=== PATIENT | male | born 1965 | race Caucasian/White ===

== ENCOUNTER 2017-04-04 06:11 | Day surgery (SDC) | payer OTHER ==
[2017-04-03 14:06] VITALS: BMI 23.0
--- NOTE | 2017-04-03 21:02 | HP ---
DATE OF ADMISSION: 04/04/2017 ADMISSION DIAGNOSIS: Left preauricular cyst and sinus tract. HISTORY OF PRESENT ILLNESS: This 51-year-old male has had longstanding sinus tract in the left preauricular area. He is usually able to express fluid out of the cyst through the sinus tract. More recently, he has had obstruction and recurrent infections of this. He is now admitted for surgery to excise the preauricular cyst and sinus tract. PAST MEDICAL HISTORY: Primary medical doctor is Dr. Ugo Connor in the [place]. The patient does have some asthma for which he takes Symbicort. There is also a history of chronic ear infections. ALLERGIES: There are no known drug allergies. SOCIAL HISTORY: He does not smoke. PAST SURGICAL HISTORY: Significant for endoscopy. Received no general anesthesia. FAMILY HISTORY: Negative for bleeding or anesthesia problem. PHYSICAL EXAMINATION: General: The patient is a well-developed male in no distress. HEENT: Head is normal. Eyes are clear. The external ear is remarkable for a left preauricular cyst and sinus tract. Presently, it is soft without infection. Some clear mucoid fluid can be expressed via the sinus tract. The canal and tympanic membranes are normal. The remainder of his head and neck examination is unremarkable. PREOPERATIVE LABORATORIES: Pending. PT is mildly elevated at 36. IMPRESSION: Left preauricular cyst in sinus tract. PLAN: Excision of left preauricular cyst in sinus tract under anesthesia, complex repair. INFORMED CONSENT: The patient understands the indications, alternatives, nature of risks and benefits of proposed surgery, potential complications including, but not limited to, anesthesia, bleeding, infection, scar, and recurrence are discussed in exam. He understands and accepts these risks and wishes to proceed with surgery. Questions are answered fully. ADE GARCIA M.D. [id number]
[2017-04-04] MEDS ORDERED: SODIUM CHLORIDE 0.9% P/F 10 ML VIAL IJ ONE ×2 (07:30→08:17)
[2017-04-04] MEDS ORDERED: LIDOCAINE HCL/PF 2% SDV 5ML VIAL ONE (07:30)
[2017-04-04] MEDS ORDERED: PROPOFOL 20 ML ONE ×3 (07:31→09:18)
[2017-04-04] MEDS ORDERED: GLYCOPYRROLATE 0.2 MG/1 ML VIAL ONE (07:31)
[2017-04-04] MEDS ORDERED: NEOSTIGMINE METHYLSULFATE 0.5 MG/ML - 10 ML MDV ONE (07:32)
[2017-04-04] MEDS ORDERED: ePHEDrine SULFATE 50 MG/1 ML AMPULE ONE (07:32)
[2017-04-04] MEDS ORDERED: PHENYLEPHRINE HCL 10 MG/1 ML SINGLE DOSE VIAL ONE (07:33)
[2017-04-04] MEDS ORDERED: SUCCINYLCHOLINE CHLORIDE 200 MG/10 ML VIAL ONE (07:34)
[2017-04-04] MEDS ORDERED: ROCURONIUM BROMIDE 50 MG/5 ML VIAL ONE ×2 (07:34→08:24)
[2017-04-04] MEDS ORDERED: MIDAZOLAM HCL 2 MG/2 ML SINGLE DOSE VIAL ONE (07:35)
[2017-04-04] MEDS ORDERED: ONDANSETRON 4 MG/2 ML VIAL IVPUSH PRN (07:45)
[2017-04-04] MEDS ORDERED: LACTATED RINGERS SOLUTION 1,000 ML IV SCH (07:45)
--- NOTE | 2017-04-04 07:59 | HP ---
History & Physical Update - History History: No Change - Physical Physical: No Change - Assessment Assessment: No Change - Plan Plan: No Change
[2017-04-04] MEDS ORDERED: ceFAZolin SODIUM 1 GM VIAL ONE (08:17)
[2017-04-04] MEDS ORDERED: DEXAMETHASONE SOD PHOSPHATE 4 MG/1 ML VIAL ONE (08:25)
[2017-04-04] MEDS ORDERED: LIDOCAINE 1%/EPI 1:100000 (20 ML MULTI DOSE VIAL) INF ONE (08:28)
[2017-04-04] MEDS ORDERED: BACITRACIN 15 GM TUBE TOPICAL OINTMENT ONE (09:22)
[2017-04-04] MEDS ORDERED: oxyCODONE HCL 5 MG TABLET PO PRN (09:40)
--- NOTE | 2017-04-04 09:40 | OP ---
Operative Note - Note: Operative Date: 04/04/17 ([id number]) Pre-Operative Diagnosis: left preauricular cyst and sinus tract Operation: excision of left preauricular cyst and sinus tract with intermediate repair Findings: left preauricular cyst and sinus tract, scar tissue from prior infections and incision/drainage procedures Post-Operative Diagnosis: Same as Pre-op Surgeon: Can Serra Anesthesiologist/MAIL DISTRIBUTOR: Rinku Zacarias Anesthesia: General Specimens Removed: left preauricular cyst and sinus tract Estimated Blood Loss (mls): 3 Blood Volume Replaced (mls): 0 Operative Report Dictated: Yes
[2017-04-04] MEDS ORDERED: oxyCODONE HCL 5 MG TABLET ONE (12:13)
[2017-04-04 14:03] VITALS: BP 142/82; PULSE 78; TEMP 97.8
--- NOTE | 2017-04-05 09:14 | OP ---
DATE OF OPERATION: 04/04/2017 PREOPERATIVE DIAGNOSIS: Left preauricular cyst in sinus tract. POSTOPERATIVE DIAGNOSIS: Left preauricular cyst in sinus tract. PROCEDURE: Excision of left preauricular cyst in sinus tract with intermediate closure. SURGEON: Ade Serra MD ANESTHESIOLOGIST: Dr. Zacarias ANESTHESIA: General via endotracheal tube. INDICATIONS: This 51-year-old male has had a history of left preauricular cyst in sinus tract for many years. Recently, he has developed recurrent infections requiring antibiotics and drainage. On exam, he has a left preauricular cyst in sinus tract which drains a small amount of thick fluid upon pressure of the cyst. The remaining auricle and ear canal and tympanic membrane are normal. He is now brought to surgery for treatment. Left preauricular cyst in sinus tract, scarring from previous infections, and incision and drainage procedures. DESCRIPTION OF PROCEDURE: Patient was brought to the operating room and placed on the operating table in spine position. General endotracheal anesthesia was induced to a satisfactory level. He was prepped and draped in the usual fashion for surgery. The cyst was pressed, and some cloudy fluid was expressed from the sinus tract. Culture was sent. Lidocaine 1% with epinephrine 1:200,000 was infiltrated into the area around the preauricular cyst in sinus tract. He was then prepped and draped in the usual fashion for surgery. An elliptical excision was created around the sinus tract and then carried inferiorly to the area over the cyst. This followed the line of the root of the helix. It was brought down through skin and subcutaneous tissue. Sharp and blunt dissection was then used to follow the sinus tract to the cyst. The cyst was then carefully removed from its surrounding tissue. There was scar tissue both on the skin from a previous excision and around the cyst. Some fragmentation occurred. All visible cyst and sinus tract tissue were removed. This came to abut the auricular cartilage. After removing all visible cyst and sinus tract tissue, the wound was irrigated copiously with saline. Cauterization of the wound was performed, and hemostasis was complete. The wound was then closed in layers using 5-0 Vicryl for the deep layer and interrupted 6-0 nylon for the skin. Bacitracin ointment was applied, and a dry sterile dressing was placed. Patient tolerated the procedure well. He was then awakened from general anesthesia and transferred to the PACU in stable condition. Estimated blood loss was 3 mL. He received crystalloid during the procedure. The left preauricular cyst and sinus tract was sent as a specimen to Pathology for routine studies. There were no complications. ADE SERRA M.D. [id number] MTDD
--- NOTE | 2017-04-05 17:14 | PATH ---
Surgical Pathology Report Patient Name: [facility]. Rec. #: [id number] /Age/Gender: 1965 (Age: 51) / M Account: [id number] Location: [facility] SUR[facility]ICAL Taken: 04/04/2017 Received: 04/04/2017 Reported: 04/05/2017 Physicians: Can Serra M.D. Specimen(s) Received LEFT PREAURICULAR CYST AND SINUS TRACT Clinical History Preauricular cyst and mucocele of nose and nasal sinus Final Diagnosis PREAURICULAR SINUS TRACT, LEFT, EXCISION: SKIN AND UNDERLYING SOFT TISSUE WITH MARKED ACUTE AND CHRONIC INFLAMMATION CONSISTENT WITH SINUS TRACT. Electronically Signed Opal Alonso M.D. Gross Description Received in formalin labeled "left preauricular sinus tract," is a 0.9 x 0.9 x 0.2 cm aggregate of naik soft tissue and skin fragments. The specimen is submitted in toto in one cassette. 04/04/201704/04/2017
== END 2017-04-04 13:30 | disposition home or self-care (01) ==
LOC: JASU-SURG 06:11
PROVIDERS: ATTEND Otolaryngology
PROC: 09B Ear, Nose, Sinus, Excision (ICD-10-PCS; 2017-04-04)
PROC: 09QK0ZZ Repair Nasal Mucosa and Soft Tissue, Open Approach (ICD-10-PCS; principal; 2017-04-04 08:00)
DX: Q18.1 Preauricular sinus and cyst (principal)
CPT/HCPCS: 87070; 87186; 87205; 88305-TC; 94760